=== PATIENT | female | born 1990 | race Caucasian/White ===

== ENCOUNTER 2025-05-03 07:54 | Inpatient (IN) ==
[2025-05-03] MEDS ORDERED: LIDOCAINE 1% LOCAL 20 ML VIAL INFIL PRN (08:10)
[2025-05-03] MEDS ORDERED: ACETAMINOPHEN 325 MG TAB PO PRN (08:10)
[2025-05-03 09:13] LABS: Hematocrit (blood only) 33.2 % (37.0-47.0); Hemoglobin 11.8 g/dl (12.0-16.0); Mean Corpuscular Hemoglobin 33.5 pg (25.0-34.0); Mean Corpuscular Volume 94.3 fL (80.0-100.0); Platelet Count 161 K/uL (130-400); RDW Standard Deviation 42.3 fL (36.4-46.3); Red Blood Count 3.52 M/uL (4.20-5.40); White Blood Count 7.11 K/ul (4.8-10.8)
[2025-05-03] MEDS: LACTATED RINGER'S 1,000 ML IV PRN (09:36)
[2025-05-03] MEDS: OXYTOCIN 30 UNITS/NSS 30 UNITS/500 ML BAG IV PRN (09:36)
--- NOTE | 2025-05-03 10:19 | History & Physical Report ---
Date of Service May 03, 2025 Assessment & Plan (1) Encounter for induction of labor: Plan Admit pt; iv, labs, add pitocin as needed; FHR category I Admission and Anticipated Discharge Date Admission Date: May 03, 2025 History of Present Illness Primary Care Provider: NO PCP Contractions: Negative Painful: Negative Leaky Fluid: Negative Movement: Present Pt is a 25 yo Female, , 41 wks 5 day, arrives to Labor & Delivery for induction of labor. Pt appears AOx3 and is accompanied by her to the unit Labs: Rhesus Positive, GBS Negative, Rubella Immune Hx of STDs: Negative Allergies Allergy/AdvReac Type Severity Reaction Status Date / Time amoxicillin Allergy Hives Verified 05/03/25 21:33 lactose Allergy Gastrointestinal Verified 05/03/25 08:17 Upset Penicillins Allergy Hives Verified 05/03/25 08:16 sesame oil Allergy Swelling Verified 05/03/25 08:17 of Lip/Tongue/Throat sesame seed Allergy Itching Verified 05/03/25 08:17 Home Medications Medication Instructions Recorded Confirmed Type aspirin 81 mg capsule 81 mg PO DAILY 02/16/25 05/03/25 History prenat.vits,vangie,cep-rvmd-pvsvj 1 tab PO DAILY 02/16/25 05/03/25 History famotidine [Pepcid] 1 tab PO DAILY 03/19/25 05/03/25 History Patient History Medical History (Updated 05/03/25 @ 21:07 by Taurus Calloway MD) Infertility, female IVF Family History (Updated 02/16/25 @ 14:35 by Gisele Mixon) Father Diabetes Grandmother (Maternal) Breast cancer Social History (Updated 05/03/25 @ 08:13 by Karin Infante RN) Smoking Status: Never smoker Do You Dip or Chew Tobacco: No; Hx Alcohol Use: No Hx Substance Use: No Preferred Language: Sami Communication Ability: Effective [employer] E Business Developer Required: No Beliefs That Will Affect Care: None marital status: marital status details: Ji [phone]) [phone] Current Living Situation: Spouse Current Living Situation Comment: lives with spouse, 2 dogs. current occupational status: unemployed current occupation: homemaker Other Information That Helps Us Care for You: No Feels Safe at Home: Yes Safety Concerns: Feels Safe At This Time Assistive Devices: None Review of Systems All systems reviewed & are unremarkable except as noted in HPI & below i. Denies fever, chills, sweats ii. Denies SOB, difficulty breathing, chest pain, palpitations, chest pressure iii. Denies breast pain. iv. Denies Dysuria v. Denies headache or changes in vision. Physical Exam Constitutional: WD/WN, vitals as above Eyes: PERRL, conjunctivae normal, anicteric sclerae Neck: trachea midline, no thyromegaly Cardiovascular: RRR, no murmur, no edema Gastrointestinal (Abdomen): normal bowel sounds, soft, nontender, no hepatosplenomegaly Musculoskeletal: no cyanosis or clubbing, extremities motor strength 5/5 Neurologic: patellar DTR's 2+ bilat, sensation intact Psychiatric: A+Ox3, euthymic affect Genitourinary: As Per Dr. Calloway's Attestation Results & Data Vital Signs (Past 12 Hours) Vital Signs Pulse BP 05/03/25 08:06 96 H 103/64 Supervising Physician Co-Signing Physician Notes Patient seen with resident and agree with the above findings plan. Cervix closed/long/high and posterior. We attempted to place cervical ripening Heaton this morning upon admission. This was not successful and was started on oxytocin per regular protocol. Heaton catheter was able to be placed at around 1 PM.
--- NOTE | 2025-05-03 20:45 | Labor Progress Brief Note ---
Date of Service May 03, 2025 Subjective Reason For Note: Routine Evaluation Assessment & Plan (1) Encounter for induction of labor: Plan: Presented for evaluation after Heaton catheter came out. Was found to be 1.5 cm dilated 80% effaced -2 station. AROM for clear. Category 1 tracing. Will continue to monitor Admission and Anticipated Discharge Date Admission Date: May 03, 2025 Physical Exam Genitourinary: Manual OB Exam: + cervical dilation (1.5), + cervical effacement 80%, + station -2 and + amniotic fluid (AROM) clear OB Exam Monitor Tracing: + external FHT monitor used, + external uterine monitor used, + category I and + normal FHT variability Results & Data Vital Signs (Past 12 Hours) Vital Signs Temp Pulse Resp BP 05/03/25 19:30 83 119/79 05/03/25 19:00 16 05/03/25 19:00 36.6 C 05/03/25 18:39 72 111/72 05/03/25 17:39 72 105/55 L 05/03/25 16:40 76 117/78 05/03/25 15:40 76 123/60 05/03/25 15:00 18 05/03/25 15:00 36.7 C 05/03/25 14:39 68 129/75 05/03/25 13:39 83 112/66 05/03/25 12:40 75 115/56 L 05/03/25 11:41 75 89/54 L 05/03/25 11:00 18 05/03/25 11:00 36.7 C 05/03/25 10:40 79 113/63 05/03/25 09:38 88 108/61 Coding Level of Care Code None Diagnoses Encounter for induction of labor Z34.90
[2025-05-03] MEDS: CALCIUM CARBONATE 500 MG CHEWABLE TAB PO PRN (21:31)
[2025-05-03] MEDS: FAMOTIDINE 20MG IV PUSH 20 MG/5 ML SYR IV SCH (22:00)
[2025-05-03] MEDS ORDERED: SODIUM CHLORIDE 0.9% PF INJ 10 ML VIAL EPI PRN (22:25)
[2025-05-03] MEDS ORDERED: NALOXONE HCL 1 MG in SODIUM CHLORIDE 0.9% 1,000 ML IV PRN (22:25)
[2025-05-03] MEDS ORDERED: NALOXONE HCL 0.4 MG/1 ML VIAL/CARP IV PRN (22:25)
[2025-05-03] MEDS ORDERED: NALBUPHINE HCL INJ 10 MG/ML AMP IV PRN (22:25)
[2025-05-03] MEDS ORDERED: ROPIVACAINE 0.5% PF 5 MG/ML 20 ML VIAL EPI PRN (22:25)
[2025-05-03] MEDS ORDERED: BUPIVACAINE 0.25% PF 30 ML VIAL EPI PRN (22:25)
[2025-05-03] MEDS ORDERED: LIDOCAINE 2% MPF LOCAL 5 ML VIAL EPI PRN (22:25)
[2025-05-03] MEDS ORDERED: diphenhydrAMINE 50 MG/ML VIAL IV PRN (22:25)
--- NOTE | 2025-05-03 22:28 | Anesthesiology Consultation ---
Date of Service May 03, 2025 Assessment & Plan Chart Review Chart Review: Patient NOT seen in Pre Admission Testing and Acceptable Risk for Labor Epidural Consults Requested none ASA ASA2 Proposed Anesthesia Anesthesia Type: Labor Epidural Risk / Benefits Reviewed With: PT / POA / Parent / Guardian, Accepts Plan and Informed Consent Obtained History Height/Weight Height: 5 ft 5 in Weight: 92.986 kg Allergies Allergy/AdvReac Type Severity Reaction Status Date / Time amoxicillin Allergy Hives Verified 05/03/25 21:33 lactose Allergy Gastrointestinal Verified 05/03/25 08:17 Upset Penicillins Allergy Hives Verified 05/03/25 08:16 sesame oil Allergy Swelling Verified 05/03/25 08:17 of Lip/Tongue/Throat sesame seed Allergy Itching Verified 05/03/25 08:17 Medications Home Medications Medication Instructions Recorded Confirmed Last Taken aspirin 81 mg capsule 81 mg PO DAILY 02/16/25 05/03/25 05/02/25 prenat.vits,vangie,mjs-jciy-gjopy 1 tab PO DAILY 02/16/25 05/03/25 05/02/25 famotidine [Pepcid] 1 tab PO DAILY 03/19/25 05/03/25 05/02/25 Active Medications Generic Name Dose Route Start Last Admin Trade Name Freq PRN Reason Stop Dose Admin Calcium Carbonate 500 mg 05/03/25 08:10 05/03/25 21:31 Calcium Carbonate 500 Mg Chewable Tab PO 06/02/25 08:09 500 mg Q6H PRN Administration Indigestion Lactated Ringer's 1,000 mls @ 125 mls/hr 05/03/25 08:10 05/03/25 17:29 Lr IV 05/05/25 08:09 125 mls/hr .Q8H PRN Administration L&D Protocol Protocol Oxytocin 30 units in 500 mls @ 24 mls/hr 05/03/25 08:38 05/03/25 21:32 Pitocin 30 Units/Nss IV 05/05/25 08:37 1.44 units/hr .[id number] PRN 24 mls/hr Labor Induction/Augmentation Titration Protocol 1.44 UNITS/HR Famotidine 20 mg in 5 mls @ 2.5 mls/min 05/03/25 21:30 05/03/25 22:00 Pepcid 20mg Iv Push IV 06/02/25 21:29 2.5 mls/min Q12H KHLOE Administration NPO Date Last Intake of Fluids: 05/03/25 Time Last Intake of Fluids: 22:00 Date Last Intake of Solids: 05/03/25 Time Last Intake of Solids: 07:00 Past Medical History Medical History Infertility, female IVF Exercise / Class Metabolic Activity 1 > 8 Run/Swim/Ski/Tennis Past Family History Family History Father Diabetes Grandmother (Maternal) Breast cancer Past Anesthesia History No Hx of Anesthesia Complications and No Family Hx of Anesthesia Complications History of PONV No Hx of PONV and No Hx of Motion Sickness Social History Smoking Status: Never smoker Do You Dip or Chew Tobacco: No Hx Alcohol Use: No Hx Substance Use: No substance use type: does not use Review of Systems ROS Unobtainable: All systems reviewed & are unremarkable except as noted in HPI & below Physical Exam Vital Signs Last Vital Signs Temp 36.6 C 05/03/25 22:05 Pulse 74 05/03/25 22:05 Resp 16 05/03/25 22:05 BP 113/75 05/03/25 22:05 ENMT Mouth: no TMJ abnormality Thyromental Distance: > or= 3.5 Finger Breadths Mallampati Class: II Neck normal visual inspection and trachea midline; neck extension not limited Respiratory normal respiratory effort Auscultation: lungs clear to auscultation bilaterally Cardiovascular Rate/Rhythm: regular rate and regular rhythm Heart Sounds: no murmur Musculoskeletal Spine: normal cervical ROM Extremities: full ROM of extremities Neurologic moves all extremities Psychiatric Orientation: alert and oriented x 3 Testing Laboratory Results 05/03/25 08:56
[2025-05-03] MEDS: fentANYL 2 MCG/ML BUPIVacaine 0.125%-NSS 100ML BAG EPI PRN (22:57)
[2025-05-03] MEDS: BUPIVACAINE 0.25% PF 30 ML VIAL EPI STA (22:58)
[2025-05-03] MEDS: LIDOCAINE 2%/EPINEPHRINE 1:200,000 20 ML PF ONE (22:59)
--- NOTE | 2025-05-03 23:41 | Labor Progress Brief Note ---
Date of Service May 03, 2025 Subjective Reason For Note: Routine Evaluation Assessment & Plan (1) Encounter for induction of labor: Plan: Minimal cervical change noted. IUPC placed for Pitocin titration. rupture membranes for clear. Category 1 tracing. Vitals within normal limits. Admission and Anticipated Discharge Date Admission Date: May 03, 2025 Physical Exam Genitourinary: Manual OB Exam: + cervical dilation (2), + cervical effacement 90%, + station -1 and + amniotic fluid clear OB Exam Monitor Tracing: + external FHT monitor used, + external uterine monitor used, + category I and + normal FHT variability Results & Data Vital Signs (Past 12 Hours) Vital Signs Temp Pulse Resp BP Pulse Ox 05/03/25 23:36 74 96 05/03/25 23:31 76 95 05/03/25 23:26 76 95 05/03/25 23:24 73 94/55 L 05/03/25 23:21 82 96 05/03/25 23:16 81 95 05/03/25 23:11 78 98 05/03/25 23:08 90 104/59 L 05/03/25 23:06 92 H 97 05/03/25 23:05 97 H 106/61 05/03/25 23:02 90 108/58 L 05/03/25 23:01 89 97 05/03/25 22:59 89 104/59 L 05/03/25 22:56 97 05/03/25 22:56 92 H 05/03/25 22:56 81 115/56 L 05/03/25 22:54 88 117/56 L 05/03/25 22:53 83 130/56 L 05/03/25 22:51 93 H 99 05/03/25 22:46 76 100 05/03/25 22:41 73 100 05/03/25 22:05 36.6 C 74 16 113/75 05/03/25 20:59 36.5 C 73 16 102/56 L 05/03/25 19:30 83 119/79 05/03/25 19:00 16 05/03/25 19:00 36.6 C 16 05/03/25 18:39 72 111/72 05/03/25 17:39 72 105/55 L 05/03/25 16:40 76 117/78 05/03/25 15:40 76 123/60 05/03/25 15:00 18 05/03/25 15:00 36.7 C 18 05/03/25 14:39 68 129/75 05/03/25 13:39 83 112/66 05/03/25 12:40 75 115/56 L 05/03/25 11:41 75 89/54 L Coding Level of Care Code None Diagnoses Encounter for induction of labor Z34.90
--- NOTE | 2025-05-04 07:10 | Labor Progress Brief Note ---
Date of Service May 04, 2025 Subjective Reason For Note: Routine Evaluation Assessment & Plan (1) Encounter for induction of labor: Plan: Slow progress noted. Will continue oxytocin per regular protocol. Vitals within normal limits. Admission and Anticipated Discharge Date Admission Date: May 03, 2025 Physical Exam Genitourinary: Manual OB Exam: + cervical dilation (3.5), + cervical effacement 90%, + station -2 and + amniotic fluid clear OB Exam Monitor Tracing: + external FHT monitor used, + external uterine monitor used, + category I and + normal FHT variability Cervical exam per nurse Results & Data Vital Signs (Past 12 Hours) Vital Signs Temp Pulse Resp BP Pulse Ox 05/04/25 04:36 76 98 05/04/25 04:31 81 98 05/04/25 04:26 77 97 05/04/25 04:25 72 113/76 05/04/25 04:21 74 99 05/04/25 04:16 93 H 99 05/04/25 04:11 70 97 05/04/25 04:10 37.5 C 67 16 98/56 L 05/04/25 04:06 71 98 05/04/25 04:01 65 98 05/04/25 03:56 70 99 05/04/25 03:54 71 98/51 L 05/04/25 03:51 70 97 05/04/25 03:46 69 97 05/04/25 03:41 69 97 05/04/25 03:38 70 94/51 L 05/04/25 03:36 69 96 05/04/25 03:31 77 95 05/04/25 03:26 69 96 05/04/25 03:25 67 92/50 L 05/04/25 03:21 68 96 05/04/25 03:16 63 97 05/04/25 03:11 76 98 05/04/25 03:10 67 97/53 L 05/04/25 03:06 84 95 05/04/25 03:01 83 94 05/04/25 02:56 81 95 05/04/25 02:53 82 115/55 L 05/04/25 02:51 79 95 05/04/25 02:46 83 95 05/04/25 02:41 91 H 95 05/04/25 02:40 16 05/04/25 02:40 37.1 C 16 05/04/25 02:39 86 112/53 L 05/04/25 02:36 87 94 05/04/25 02:31 82 94 05/04/25 02:26 84 94 05/04/25 02:23 90 105/52 L 05/04/25 02:21 81 94 05/04/25 02:16 81 94 05/04/25 02:11 85 94 05/04/25 02:08 86 98/55 L 05/04/25 02:06 83 93 05/04/25 02:01 83 93 05/04/25 01:56 81 94 05/04/25 01:54 81 102/58 L 05/04/25 01:51 82 95 05/04/25 01:46 77 95 05/04/25 01:41 86 96 05/04/25 01:38 82 98/53 L 05/04/25 01:36 85 96 05/04/25 01:31 82 95 05/04/25 01:26 79 95 05/04/25 01:23 71 104/58 L 05/04/25 01:21 80 95 05/04/25 01:16 78 95 05/04/25 01:11 69 96 05/04/25 01:09 67 103/56 L 05/04/25 01:06 84 97 05/04/25 01:01 77 94 05/04/25 00:56 70 95 05/04/25 00:53 86 110/58 L 05/04/25 00:51 72 95 05/04/25 00:46 72 95 05/04/25 00:41 74 95 05/04/25 00:38 81 108/57 L 05/04/25 00:36 83 96 05/04/25 00:31 85 96 05/04/25 00:30 75 105/58 L 05/04/25 00:26 96 05/04/25 00:26 80 05/04/25 00:26 90 89/55 L 05/04/25 00:24 81 85/48 L 05/04/25 00:21 76 94 05/04/25 00:16 80 94 05/04/25 00:11 76 95 05/04/25 00:09 71 92/53 L 05/04/25 00:06 76 95 05/04/25 00:02 76 94 05/04/25 00:01 76 95 05/03/25 23:56 73 96 05/03/25 23:54 72 99/55 L 05/03/25 23:51 73 95 05/03/25 23:46 78 95 05/03/25 23:42 69 91/55 L 05/03/25 23:41 74 91/45 L 96 05/03/25 23:36 74 96 05/03/25 23:31 76 95 05/03/25 23:26 76 95 05/03/25 23:24 73 94/55 L 05/03/25 23:21 82 96 05/03/25 23:16 81 95 05/03/25 23:12 36.7 C 05/03/25 23:11 78 98 05/03/25 23:08 90 104/59 L 05/03/25 23:06 92 H 97 05/03/25 23:05 97 H 106/61 05/03/25 23:02 90 108/58 L 05/03/25 23:01 89 97 05/03/25 23:00 18 05/03/25 23:00 18 05/03/25 22:59 89 104/59 L 05/03/25 22:56 97 05/03/25 22:56 92 H 05/03/25 22:56 81 115/56 L 05/03/25 22:54 88 117/56 L 05/03/25 22:53 83 130/56 L 05/03/25 22:51 93 H 99 05/03/25 22:46 76 100 05/03/25 22:41 73 100 05/03/25 22:05 36.6 C 74 16 113/75 05/03/25 20:59 36.5 C 73 16 102/56 L 05/03/25 19:30 83 119/79 05/03/25 19:00 16 05/03/25 19:00 36.6 C 16 05/03/25 18:39 72 111/72 05/03/25 17:39 72 105/55 L 05/03/25 16:40 76 117/78 Coding Level of Care Code None Diagnoses Encounter for induction of labor Z34.90
[2025-05-04] MEDS: BUPIVACAINE 0.25% PF 30 ML VIAL ONE (07:23)
--- NOTE | 2025-05-04 07:40 | Labor Progress Brief Note ---
Date of Service May 04, 2025 Subjective Reason For Note: Routine Evaluation Assessment & Plan (1) Encounter for induction of labor: Plan: Excellent progress noted. Continue oxytocin per regular protocol. Vitals within normal limits. Category 1 tracing (2) resulting from in vitro fertilization, antepartum: Admission and Anticipated Discharge Date Admission Date: May 03, 2025 Physical Exam Genitourinary: normal external appearance Manual OB Exam: + cervical dilation (8.5), + cervical effacement 90%, + station 0 and + 1 and + amniotic fluid clear OB Exam Monitor Tracing: + external FHT monitor used, + external uterine monitor used, + category I and + normal FHT variability Results & Data Vital Signs (Past 12 Hours) Vital Signs Temp Pulse Resp BP Pulse Ox 05/04/25 07:36 100 H 97 05/04/25 07:31 95 H 96 05/04/25 07:26 82 96 05/04/25 07:25 76 117/66 05/04/25 07:21 74 97 05/04/25 07:16 78 96 05/04/25 07:11 80 96 05/04/25 07:06 72 95 05/04/25 07:01 82 98 05/04/25 06:56 86 96 05/04/25 06:53 88 106/61 05/04/25 06:51 83 96 05/04/25 06:46 85 96 05/04/25 06:41 77 96 05/04/25 06:40 16 05/04/25 06:40 37.2 C 16 05/04/25 06:39 78 119/68 05/04/25 06:36 83 95 05/04/25 06:31 85 94 05/04/25 06:26 89 97 05/04/25 06:24 85 117/59 L 05/04/25 06:21 85 95 05/04/25 06:16 84 94 05/04/25 06:11 82 96 05/04/25 06:09 83 110/65 05/04/25 06:06 85 95 05/04/25 06:01 85 95 05/04/25 05:56 81 96 05/04/25 05:55 83 103/60 05/04/25 05:51 83 96 05/04/25 05:46 85 96 05/04/25 05:41 81 96 05/04/25 05:39 79 109/65 05/04/25 05:36 83 97 05/04/25 05:31 79 98 05/04/25 05:26 77 99 05/04/25 05:24 83 118/80 05/04/25 05:21 83 98 05/04/25 05:16 80 99 05/04/25 05:11 79 99 05/04/25 05:09 78 102/54 L 05/04/25 05:06 78 97 05/04/25 05:01 84 99 05/04/25 04:56 75 97 05/04/25 04:53 71 117/68 05/04/25 04:51 74 98 05/04/25 04:46 83 99 05/04/25 04:41 75 99 05/04/25 04:39 71 103/63 05/04/25 04:36 76 98 05/04/25 04:31 81 98 05/04/25 04:26 77 97 05/04/25 04:25 72 113/76 05/04/25 04:21 74 99 05/04/25 04:16 93 H 99 05/04/25 04:11 70 97 05/04/25 04:10 37.5 C 67 16 98/56 L 05/04/25 04:06 71 98 05/04/25 04:01 65 98 05/04/25 03:56 70 99 05/04/25 03:54 71 98/51 L 05/04/25 03:51 70 97 05/04/25 03:46 69 97 05/04/25 03:41 69 97 05/04/25 03:38 70 94/51 L 05/04/25 03:36 69 96 05/04/25 03:31 77 95 05/04/25 03:26 69 96 05/04/25 03:25 67 92/50 L 05/04/25 03:21 68 96 05/04/25 03:16 63 97 05/04/25 03:11 76 98 05/04/25 03:10 67 97/53 L 05/04/25 03:06 84 95 05/04/25 03:01 83 94 05/04/25 02:56 81 95 05/04/25 02:53 82 115/55 L 05/04/25 02:51 79 95 05/04/25 02:46 83 95 05/04/25 02:41 91 H 95 05/04/25 02:40 16 05/04/25 02:40 37.1 C 16 05/04/25 02:39 86 112/53 L 05/04/25 02:36 87 94 05/04/25 02:31 82 94 05/04/25 02:26 84 94 05/04/25 02:23 90 105/52 L 05/04/25 02:21 81 94 05/04/25 02:16 81 94 05/04/25 02:11 85 94 05/04/25 02:08 86 98/55 L 05/04/25 02:06 83 93 05/04/25 02:01 83 93 05/04/25 01:56 81 94 05/04/25 01:54 81 102/58 L 05/04/25 01:51 82 95 05/04/25 01:46 77 95 05/04/25 01:41 86 96 05/04/25 01:38 82 98/53 L 05/04/25 01:36 85 96 05/04/25 01:31 82 95 05/04/25 01:26 79 95 05/04/25 01:23 71 104/58 L 05/04/25 01:21 80 95 05/04/25 01:16 78 95 05/04/25 01:11 69 96 05/04/25 01:09 67 103/56 L 05/04/25 01:06 84 97 05/04/25 01:01 77 94 05/04/25 00:56 70 95 05/04/25 00:53 86 110/58 L 05/04/25 00:51 72 95 05/04/25 00:46 72 95 05/04/25 00:41 74 95 05/04/25 00:38 81 108/57 L 05/04/25 00:36 83 96 05/04/25 00:31 85 96 05/04/25 00:30 75 105/58 L 05/04/25 00:26 96 05/04/25 00:26 80 05/04/25 00:26 90 89/55 L 05/04/25 00:24 81 85/48 L 05/04/25 00:21 76 94 05/04/25 00:16 80 94 05/04/25 00:11 76 95 05/04/25 00:09 71 92/53 L 05/04/25 00:06 76 95 05/04/25 00:02 76 94 05/04/25 00:01 76 95 05/03/25 23:56 73 96 05/03/25 23:54 72 99/55 L 05/03/25 23:51 73 95 05/03/25 23:46 78 95 05/03/25 23:42 69 91/55 L 05/03/25 23:41 74 91/45 L 96 05/03/25 23:36 74 96 05/03/25 23:31 76 95 05/03/25 23:26 76 95 05/03/25 23:24 73 94/55 L 05/03/25 23:21 82 96 05/03/25 23:16 81 95 05/03/25 23:12 36.7 C 05/03/25 23:11 78 98 05/03/25 23:08 90 104/59 L 05/03/25 23:06 92 H 97 05/03/25 23:05 97 H 106/61 05/03/25 23:02 90 108/58 L 05/03/25 23:01 89 97 05/03/25 23:00 18 05/03/25 23:00 18 05/03/25 22:59 89 104/59 L 05/03/25 22:56 97 05/03/25 22:56 92 H 05/03/25 22:56 81 115/56 L 05/03/25 22:54 88 117/56 L 05/03/25 22:53 83 130/56 L 05/03/25 22:51 93 H 99 05/03/25 22:46 76 100 05/03/25 22:41 73 100 05/03/25 22:05 36.6 C 74 16 113/75 05/03/25 20:59 36.5 C 73 16 102/56 L Coding Level of Care Code None Diagnoses Encounter for induction of labor Z34.90 resulting from in vitro fertilization, antepartum O09.819
--- NOTE | 2025-05-04 08:11 | Anesthesia Procedure Note ---
Date of Service May 04, 2025 Anesthesia Epidural Re-Dose Vital Signs Temp Pulse Resp BP Pulse Ox 98.4 F 84 16 117/72 97 05/04/25 07:15 05/04/25 08:06 05/04/25 06:40 05/04/25 07:54 05/04/25 08:06 Notes Pain Intensity: 0 Dilatation (cm): 8.5 Effacement (%): 90 Called by nursing to evaluate epidural as the patient is having increased pain. The epidural was re-dosed with the following medications (all medications via epidural route) after negative aspiration of the epidural catheter for CSF/HEME. Bupivacaine 0.25% (6ml) with 100 mcg Fentanyl After Epidural Re-Dose Mental Status: alert / awake / arousable Pain: improving with treatment Airway Patency, RR, SpO2: stable & adequate BP & HR: stable & adequate
--- NOTE | 2025-05-04 09:35 | Labor Progress Brief Note ---
Date of Service May 04, 2025 Subjective mostly being bothered by back pain Assessment & Plan (1) Encounter for induction of labor: Plan continue current management. fetus category. Admission and Anticipated Discharge Date Admission Date: May 03, 2025 Physical Exam Physical Exam: cx--ant lip/-1 toco--q3-4, pit at 30 efm--130s with mod variability, accels to 170s, no decels Results & Data Vital Signs (Past 12 Hours) Vital Signs Temp Pulse Resp BP Pulse Ox 05/04/25 09:31 72 100 05/04/25 09:26 81 99 05/04/25 09:23 73 116/60 05/04/25 09:21 77 99 05/04/25 09:16 71 100 05/04/25 09:11 77 99 05/04/25 09:06 79 98 05/04/25 09:01 75 97 05/04/25 08:56 88 100 05/04/25 08:52 75 123/69 05/04/25 08:51 80 97 05/04/25 08:46 78 96 05/04/25 08:41 81 96 05/04/25 08:36 76 95 05/04/25 08:31 77 95 05/04/25 08:26 76 97 05/04/25 08:23 77 106/57 L 05/04/25 08:21 76 98 05/04/25 08:16 79 99 05/04/25 08:11 89 97 05/04/25 08:10 83 181/63 H 05/04/25 08:06 84 97 05/04/25 08:01 88 97 05/04/25 07:56 88 96 05/04/25 07:54 114 H 117/72 05/04/25 07:51 113 H 99 05/04/25 07:46 91 H 99 05/04/25 07:41 86 97 05/04/25 07:40 90 108/67 05/04/25 07:36 100 H 97 05/04/25 07:31 95 H 96 05/04/25 07:26 82 96 05/04/25 07:25 76 117/66 05/04/25 07:21 74 97 05/04/25 07:16 78 96 05/04/25 07:15 36.9 C 05/04/25 07:15 36.9 C 05/04/25 07:11 80 96 05/04/25 07:06 72 95 05/04/25 07:01 82 98 05 06:56 86 96 05/04/25 06:53 88 106/61 05/04/25 06:51 83 96 05/04/25 06:46 85 96 05/04/25 06:41 77 96 05/04/25 06:40 16 05/04/25 06:40 37.2 C 16 05/04/25 06:39 78 119/68 05/04/25 06:36 83 95 05/04/25 06:31 85 94 05/04/25 06:26 89 97 05/04/25 06:24 85 117/59 L 05/04/25 06:21 85 95 05/04/25 06:16 84 94 05/04/25 06:11 82 96 05/04/25 06:09 83 110/65 05/04/25 06:06 85 95 05/04/25 06:01 85 95 05/04/25 05:56 81 96 05/04/25 05:55 83 103/60 05/04/25 05:51 83 96 05/04/25 05:46 85 96 05/04/25 05:41 81 96 05/04/25 05:39 79 109/65 05/04/25 05:36 83 97 05/04/25 05:31 79 98 05/04/25 05:26 77 99 05/04/25 05:24 83 118/80 05/04/25 05:21 83 98 05/04/25 05:16 80 99 05/04/25 05:11 79 99 05 05:09 78 102/54 L 05/04/25 05:06 78 97 05 05:01 84 99 05 04:56 75 97 05 04:53 71 117/68 05 04:51 74 98 05 04:46 83 99 05 04:41 75 99 05/04/25 04:39 71 103/63 05 04:36 76 98 05 04:31 81 98 05 04:26 77 97 05 04:25 72 113/76 05/04/25 04:21 74 99 05/04/25 04:16 93 H 99 05/04/25 04:11 70 97 05/04/25 04:10 37.5 C 67 16 98/56 L 05/04/25 04:06 71 98 05/04/25 04:01 65 98 05/04/25 03:56 70 99 05/04/25 03:54 71 98/51 L 05/04/25 03:51 70 97 05/04/25 03:46 69 97 05/04/25 03:41 69 97 05/04/25 03:38 70 94/51 L 05/04/25 03:36 69 96 05/04/25 03:31 77 95 05/04/25 03:26 69 96 05/04/25 03:25 67 92/50 L 05/04/25 03:21 68 96 05/04/25 03:16 63 97 05/04/25 03:11 76 98 05/04/25 03:10 67 97/53 L 05/04/25 03:06 84 95 05/04/25 03:01 83 94 05/04/25 02:56 81 95 05/04/25 02:53 82 115/55 L 05/04/25 02:51 79 95 05/04/25 02:46 83 95 05/04/25 02:41 91 H 95 05/04/25 02:40 16 05/04/25 02:40 37.1 C 16 05/04/25 02:39 86 112/53 L 05/04/25 02:36 87 94 05/04/25 02:31 82 94 05/04/25 02:26 84 94 05/04/25 02:23 90 105/52 L 05/04/25 02:21 81 94 05/04/25 02:16 81 94 05/04/25 02:11 85 94 05/04/25 02:08 86 98/55 L 05/04/25 02:06 83 93 05/04/25 02:01 83 93 05/04/25 01:56 81 94 05/04/25 01:54 81 102/58 L 05/04/25 01:51 82 95 05/04/25 01:46 77 95 05/04/25 01:41 86 96 05/04/25 01:38 82 98/53 L 05/04/25 01:36 85 96 05/04/25 01:31 82 95 05/04/25 01:26 79 95 05/04/25 01:23 71 104/58 L 05/04/25 01:21 80 95 05/04/25 01:16 78 95 05/04/25 01:11 69 96 05/04/25 01:09 67 103/56 L 05/04/25 01:06 84 97 05/04/25 01:01 77 94 05/04/25 00:56 70 95 05/04/25 00:53 86 110/58 L 05/04/25 00:51 72 95 05/04/25 00:46 72 95 05/04/25 00:41 74 95 05/04/25 00:38 81 108/57 L 05/04/25 00:36 83 96 05/04/25 00:31 85 96 05/04/25 00:30 75 105/58 L 05/04/25 00:26 96 05/04/25 00:26 80 05/04/25 00:26 90 89/55 L 05/04/25 00:24 81 85/48 L 05/04/25 00:21 76 94 05/04/25 00:16 80 94 05/04/25 00:11 76 95 05/04/25 00:09 71 92/53 L 05/04/25 00:06 76 95 05/04/25 00:02 76 94 05/04/25 00:01 76 95 05/03/25 23:56 73 96 05/03/25 23:54 72 99/55 L 05/03/25 23:51 73 95 05/03/25 23:46 78 95 05/03/25 23:42 69 91/55 L 05/03/25 23:41 74 91/45 L 96 05/03/25 23:36 74 96 05/03/25 23:31 76 95 05/03/25 23:26 76 95 05/03/25 23:24 73 94/55 L 05/03/25 23:21 82 96 05/03/25 23:16 81 95 05/03/25 23:12 36.7 C 05/03/25 23:11 78 98 05/03/25 23:08 90 104/59 L 05/03/25 23:06 92 H 97 05/03/25 23:05 97 H 106/61 05/03/25 23:02 90 108/58 L 05/03/25 23:01 89 97 05/03/25 23:00 18 05/03/25 23:00 18 05/03/25 22:59 89 104/59 L 05/03/25 22:56 97 05/03/25 22:56 92 H 05/03/25 22:56 81 115/56 L 05/03/25 22:54 88 117/56 L 05/03/25 22:53 83 130/56 L 05/03/25 22:51 93 H 99 05/03/25 22:46 76 100 05/03/25 22:41 73 100 05/03/25 22:05 36.6 C 74 16 113/75 Coding Level of Care Code None Diagnoses Encounter for induction of labor Z34.90
[2025-05-04] MEDS: fentANYL 2 MCG/ML BUPIVacaine 0.125%-NSS 100ML BAG ONE (09:55)
[2025-05-04] MEDS: LIDOCAINE 2%/EPINEPHRINE 1:200,000 20 ML PF EPI STA (09:55)
[2025-05-04] MEDS: SODIUM CHLORIDE 0.9% PF INJ 10 ML VIAL ONE (09:55)
[2025-05-04] MEDS: SODIUM CHLORIDE 0.9% PF INJ 10 ML VIAL EPI STA (09:55)
[2025-05-04] MEDS: ONDANSETRON INJ 2 MG/ML 2 ML VIAL IV PRN (10:23)
--- NOTE | 2025-05-04 11:31 | Labor Progress Brief Note ---
Date of Service May 04, 2025 Subjective comfortable Assessment & Plan (1) Encounter for induction of labor: Plan fetus category one. start pushing. Admission and Anticipated Discharge Date Admission Date: May 03, 2025 Physical Exam Physical Exam: cx--c/c/+1-+2 toco--q3-4min, pit at 30 efm--145 with mod variability, accels to 170s, no decels Results & Data Vital Signs (Past 12 Hours) Vital Signs Temp Pulse Resp BP Pulse Ox 05/04/25 11:26 92 H 97 05/04/25 11:22 82 106/61 05/04/25 11:21 80 94 05/04/25 11:16 81 95 05/04/25 11:11 74 95 05/04/25 11:06 72 96 05/04/25 11:01 78 98 05/04/25 10:56 78 98 05/04/25 10:52 76 109/67 05/04/25 10:51 74 98 05/04/25 10:46 74 98 05/04/25 10:41 79 99 05/04/25 10:36 70 98 05/04/25 10:31 71 100 05/04/25 10:26 70 100 05/04/25 10:22 77 111/58 L 05/04/25 10:21 81 100 05/04/25 10:16 64 100 05/04/25 10:11 82 99 05/04/25 10:06 77 99 05/04/25 10:01 81 100 05/04/25 09:56 83 99 05/04/25 09:52 77 110/59 L 05/04/25 09:51 73 100 05/04/25 09:46 78 100 05/04/25 09:41 82 99 05/04/25 09:36 81 100 05/04/25 09:31 72 100 05/04/25 09:26 81 99 05/04/25 09:23 73 116/60 05/04/25 09:21 77 99 05/04/25 09:16 71 100 05/04/25 09:11 77 99 05/04/25 09:06 79 98 05/04/25 09:01 37.0 C 75 97 05/04/25 08:56 88 100 05/04/25 08:52 75 123/69 05/04/25 08:51 80 97 09/05/25 08:46 78 96 05/04/25 08:41 81 96 05/04/25 08:36 76 95 05/04/25 08:31 77 95 05/04/25 08:26 76 97 05/04/25 08:23 77 106/57 L 05/04/25 08:21 76 98 05/04/25 08:16 79 99 05/04/25 08:11 89 97 05/04/25 08:10 83 181/63 H 05/04/25 08:06 84 97 05/04/25 08:01 88 97 05/04/25 07:56 88 96 05/04/25 07:54 114 H 117/72 05/04/25 07:51 113 H 99 05/04/25 07:46 91 H 99 05/04/25 07:41 86 97 05/04/25 07:40 90 108/67 05/04/25 07:36 100 H 97 05/04/25 07:31 95 H 96 05/04/25 07:26 82 96 05/04/25 07:25 76 117/66 05/04/25 07:21 74 97 05/04/25 07:16 78 96 05/04/25 07:15 36.9 C 05/04/25 07:15 36.9 C 05/04/25 07:11 80 96 05/04/25 07:06 72 95 05/04/25 07:01 82 98 05/04/25 06:56 86 96 05/04/25 06:53 88 106/61 05/04/25 06:51 83 96 05/04/25 06:46 85 96 05/04/25 06:41 77 96 05/04/25 06:40 16 05/04/25 06:40 37.2 C 16 05/04/25 06:39 78 119/68 05/04/25 06:36 83 95 05/04/25 06:31 85 94 05/04/25 06:26 89 97 05/04/25 06:24 85 117/59 L 05/04/25 06:21 85 95 05/04/25 06:16 84 94 05/04/25 06:11 82 96 05/04/25 06:09 83 110/65 05/04/25 06:06 85 95 05/04/25 06:01 85 95 05/04/25 05:56 81 96 05/04/25 05:55 83 103/60 05/04/25 05:51 83 96 05/04/25 05:46 85 96 05/04/25 05:41 81 96 05/04/25 05:39 79 109/65 05/04/25 05:36 83 97 05/04/25 05:31 79 98 05/04/25 05:26 77 99 05/04/25 05:24 83 118/80 05/04/25 05:21 83 98 05/04/25 05:16 80 99 05/04/25 05:11 79 99 05/04/25 05:09 78 102/54 L 05/04/25 05:06 78 97 05/04/25 05:01 84 99 05/04/25 04:56 75 97 05/04/25 04:53 71 117/68 05/04/25 04:51 74 98 05/04/25 04:46 83 99 05/04/25 04:41 75 99 05/04/25 04:39 71 103/63 05/04/25 04:36 76 98 05/04/25 04:31 81 98 05/04/25 04:26 77 97 05/04/25 04:25 72 113/76 05/04/25 04:21 74 99 05/04/25 04:16 93 H 99 05/04/25 04:11 70 97 05/04/25 04:10 37.5 C 67 16 98/56 L 05/04/25 04:06 71 98 05/04/25 04:01 65 98 05/04/25 03:56 70 99 05/04/25 03:54 71 98/51 L 05/04/25 03:51 70 97 05/04/25 03:46 69 97 05/04/25 03:41 69 97 05/04/25 03:38 70 94/51 L 05/04/25 03:36 69 96 05/04/25 03:31 77 95 05/04/25 03:26 69 96 05/04/25 03:25 67 92/50 L 05 03:21 68 96 05/04/25 03:16 63 97 05/04/25 03:11 76 98 05/04/25 03:10 67 97/53 L 05/04/25 03:06 84 95 05/04/25 03:01 83 94 05/04/25 02:56 81 95 05/04/25 02:53 82 115/55 L 05/04/25 02:51 79 95 05/04/25 02:46 83 95 05/04/25 02:41 91 H 95 05/04/25 02:40 16 05/04/25 02:40 37.1 C 16 05/04/25 02:39 86 112/53 L 05/04/25 02:36 87 94 05/04/25 02:31 82 94 05/04/25 02:26 84 94 05/04/25 02:23 90 105/52 L 05/04/25 02:21 81 94 05/04/25 02:16 81 94 05/04/25 02:11 85 94 05/04/25 02:08 86 98/55 L 05/04/25 02:06 83 93 05/04/25 02:01 83 93 05/04/25 01:56 81 94 05/04/25 01:54 81 102/58 L 05/04/25 01:51 82 95 05/04/25 01:46 77 95 05/04/25 01:41 86 96 05/04/25 01:38 82 98/53 L 05/04/25 01:36 85 96 05/04/25 01:31 82 95 05/04/25 01:26 79 95 05/04/25 01:23 71 104/58 L 05/04/25 01:21 80 95 05/04/25 01:16 78 95 05/04/25 01:11 69 96 05/04/25 01:09 67 103/56 L 05/04/25 01:06 84 97 05/04/25 01:01 77 94 05/04/25 00:56 70 95 05/04/25 00:53 86 110/58 L 05/04/25 00:51 72 95 05/04/25 00:46 72 95 05/04/25 00:41 74 95 05/04/25 00:38 81 108/57 L 05/04/25 00:36 83 96 05/04/25 00:31 85 96 05/04/25 00:30 75 105/58 L 05/04/25 00:26 96 05/04/25 00:26 80 05/04/25 00:26 90 89/55 L 05/04/25 00:24 81 85/48 L 05/04/25 00:21 76 94 05/04/25 00:16 80 94 05/04/25 00:11 76 95 05/04/25 00:09 71 92/53 L 05/04/25 00:06 76 95 05/04/25 00:02 76 94 05/04/25 00:01 76 95 05/03/25 23:56 73 96 05/03/25 23:54 72 99/55 L 05/03/25 23:51 73 95 05/03/25 23:46 78 95 05/03/25 23:42 69 91/55 L 05/03/25 23:41 74 91/45 L 96 05/03/25 23:36 74 96 05/03/25 23:31 76 95 Coding Level of Care Code None Diagnoses Encounter for induction of labor Z34.90
[2025-05-04] MEDS: METHYLERGONOVINE MALEATE 0.2 MG/ML AMP ONE (13:14)
[2025-05-04] MEDS: CARBOPROST TROMETHAMINE 250 MCG/ML AMPUL ONE (13:23)
--- NOTE | 2025-05-04 13:34 | Delivery Summary ---
Vaginal Delivery Summary Date of Service May 04, 2025 Vaginal Delivery Summary and 1st Degree LAC (bilateral labial) Pre-operative Diagnosis: at 41 0/7 Post-operative Diagnosis: same pph Procedure: [ valverde bulb pitocin arom iupc first degree and bilateral labial lacerations repair jennifer QBL: 1110cc Anesthesia: epidural Procedure: The patient presented to labor and delivery for postdates induction with a very unfavorable cervix. Pitocin started and was eventually able to place valverde bulb. Bulb fell out, got epidural. ARom done. The patient progressed slowly and required IUPC. She eventually got to c/c/+1. She pushed with good effort. The patient pushed for about one hour to deliver a viable female in angle position. The nose and mouth were bulb suctioned on the perineum and the rest of the infant was then delivered without difficulty after a loose nuchal cord was reduced. The baby was vigorous. The nose and mouth were again bulb suctioned and the was placed in the maternal abdomen for drying and attention. Cord was clamped and cut at 30 secs of life. Cord blood obtained. A first degree and bilateral labial lacerations were repaired. Placenta delivered by manual extraction as there was bleeding, intact with a three vessel cord. Cervix/sulci/rectum were intact. A PPH was encountered that was attended to with massage, dilute pitocin, im methergine, im hemobate, rectal cytotec and then ultimately a Jennifer was placed after clearing the sunday of clots. Apgars were 8/9. Mother and baby doing well at the end of the delivery. After placement of the Jennifer, the uterus got firm. Blood filled the tubing but did not go into the suction canister. The patient's vitals remained stable throughout. Will monitor closely. [facility] Vaginal Delivery Charge Delivery Type Details: and 1st Degree LAC (bilateral labial)
[2025-05-04] MEDS: OXYTOCIN 30 UNITS/NSS 30 UNITS/500 ML BAG IV PRN ×2 (13:36→14:43)
[2025-05-04] MEDS ORDERED: DIPHTHER/TETAN/PERTUS Vaccine (Tdap, Adol/Adult) 0.5mL IM ONE (13:56)
[2025-05-04] MEDS ORDERED: BENZOCAINE 20% SPRY 85 APPLN/85 GM CAN EXT PRN (13:56)
[2025-05-04] MEDS ORDERED: HYDROCORTISONE ACETATE 25 MG SUPP PR PRN (13:56)
[2025-05-04 14:46] LABS: Hematocrit (blood only) 33.5 % (37.0-47.0); Hemoglobin 11.6 g/dl (12.0-16.0); Mean Corpuscular Hemoglobin 33.0 pg (25.0-34.0); Mean Corpuscular Volume 95.4 fL (80.0-100.0); Platelet Count 181 K/uL (130-400); RDW Standard Deviation 42.9 fL (36.4-46.3); Red Blood Count 3.51 M/uL (4.20-5.40); White Blood Count 21.35 K/ul (4.8-10.8)
[2025-05-04] MEDS: CARBOPROST TROMETHAMINE 250 MCG/ML AMPUL IM ONE (18:00)
[2025-05-04] MEDS: METHYLERGONOVINE MALEATE 0.2 MG/ML AMP IM ONE (18:01)
--- NOTE | 2025-05-04 18:19 | Communication Note ---
Date of Service: May 04, 2025 Over the past two hours, the patient has had about 90cc of continued blood loss. the blood has not gone into the canister. The suction was d/c, the balloon was deflated and the Edwina was removed. Her bladder was drained for 850cc of urine. Her uterus is firm at u. There was not clot released after removal of the Edwina and with fundal massage. If all looks well, will transfer to the floor. It was discovered after the suction d/c that the wall suction was not connected to the correct part of the canister nor was the Edwina tubing. the Edwina tubing was actually connected to where the wall suction was supposed to be connected and that is closed to the canister. So, the blood would have never been able to actually enter the canister from the tubing as there was no opening for it. Neverthe less, her bleeding has been scant and her uterus is firm.
--- NOTE | 2025-05-04 18:29 | Anesthesia Procedure Note ---
Date of Service May 04, 2025 Anesthesia Post Epidural Note Vital Signs Vital Signs: Temp Pulse Resp BP Pulse Ox O2 Del Method 98.4 F 74 16 118/68 99 Room Air 05/04/25 15:30 05/04/25 18:14 05/04/25 15:30 05/04/25 18:14 05/04/25 12:56 05/04/25 13:45 Pain Intensity Right Abdomen: Pain Intensity: 0 Notes Mental Status: alert / awake / arousable and participated in evaluation Nausea / Vomiting: adequately controlled Pain: adequately controlled Airway Patency, RR, SpO2: stable & adequate BP & HR: stable & adequate Hydration State: stable & adequate Neuraxial Anesthesia: was administered and sensory block is resolving Anesthetic Complications: no major complications apparent and Pt Satisfied with anesthetic care Epidural: Removed without complications and With tip intact
[2025-05-04] MEDS: ACETAMINOPHEN 325 MG TAB PO PRN (18:33)
[2025-05-04] MEDS: IBUPROFEN 600 MG TAB PO PRN (20:57)
[2025-05-04] MEDS: DOCUSATE SODIUM 100 MG CAP PO SCH (22:03)
[2025-05-05 07:31] LABS: Hematocrit (blood only) 24.3 % (37.0-47.0); Hemoglobin 8.6 g/dl (12.0-16.0); Mean Corpuscular Hemoglobin 33.3 pg (25.0-34.0); Mean Corpuscular Volume 94.2 fL (80.0-100.0); Platelet Count 148 K/uL (130-400); RDW Standard Deviation 43.0 fL (36.4-46.3); Red Blood Count 2.58 M/uL (4.20-5.40); White Blood Count 12.79 K/ul (4.8-10.8)
[2025-05-05] MEDS: FERROUS SULFATE 325 MG TAB PO SCH (07:38)
[2025-05-05] MEDS: PRENATAL VITAMIN 1 TAB PO SCH (07:38)
--- NOTE | 2025-05-05 07:54 | Obstetrical Progress Note ---
Date of Service <Rohini Dickson MD - Last Filed: 05/05/25 07:55> May 05, 2025 Assessment & Plan <Rhoini Dickson MD - Last Filed: 05/05/25 07:55> (1) care following vaginal delivery: Plan -Stable routine care. Breast feeding. Rhesus Positive. Rubella Immune. Continue to monitor. <Nelida Woods MD, FACOG - Last Filed: 05/05/25 07:59> (1) care following vaginal delivery: Subjective <Rohini Dickson MD - Last Filed: 05/05/25 07:55> Ambulation: ambulating normally Voiding: no voiding problems Passing Gas:: Yes Diet Tolerance:: regular diet Lochia:: Small Feeding Type:: breast feeding Current Pain Level(1-10): 0 PPD1 Review of Systems All systems reviewed & are unremarkable except as noted in HPI & below i. Denies fever, chills, sweats ii. Denies SOB, difficulty breathing, chest pain, palpitations, chest pressure iii. Denies breast pain. iv. Denies Dysuria v. Denies headache or changes in vision. Physical Exam <Rohini Dickson MD - Last Filed: 05/05/25 07:55> Constitutional WD/WN, vitals as above Respiratory normal respiratory effort, lungs clear to auscultation Cardiovascular RRR, no murmur, no edema Gastrointestinal (Abdomen) normal bowel sounds, soft, nontender, no hepatosplenomegaly Skin no rashes, warm and dry Genitourinary On palpation of abdomen, uterus is firm and has begun involution, at approximately 1cm/day Results & Data <Rohini Dickson MD - Last Filed: 05/05/25 07:55> Vital Signs (Past 12 Hours) Vital Signs Temp Pulse Resp BP Pulse Ox O2 Del Method 05/05/25 03:20 36.7 C 79 16 94/58 L 95 Room Air 05/04/25 23:10 36.7 C 76 16 96/59 L 97 Room Air 05/04/25 20:00 36.8 C 74 16 103/64 98 Room Air Supervising Physician <Nelida Woods MD, FACOG - Last Filed: 05/05/25 07:59> Co-Signing Physician Notes Resident Physician Supervision Note: I interviewed and examined the patient. Discussed with Dr. Dickson and agree with findings and plan as documented in the note. Any exceptions or clarifications are listed here: Doing well. Tolerating h/h ok. Routine care, desires to stay. Documented By: Nelida Woods MD, FACOG Resident Activity Tracking <Rohini Dickson MD - Last Filed: 05/05/25 07:55> Resident Involvement: Resident Care Provided Care Provided: OB Delivery
[2025-05-06 07:04] LABS: Hematocrit (blood only) 27.2 % (37.0-47.0); Hemoglobin 9.3 g/dl (12.0-16.0)
[2025-05-06 07:40] VITALS: BP 117/74; PULSE 74; RESP 16; TEMP 97.7; O2SAT 97
--- NOTE | 2025-05-06 08:31 | Obstetrical Progress Note ---
Date of Service May 06, 2025 Assessment & Plan (1) care following vaginal delivery: 34 yo PP2 from c/b PPH, doing well -Meeting all pp milestones -Rh+/rubella immune/ -f/u 6 weeks for appt, dc home Subjective Ambulation: ambulating normally Voiding: no voiding problems Passing Gas:: Yes Diet Tolerance:: regular diet Lochia:: Small Feeding Type:: breast feeding Pain well managed with medication Review of Systems Denies fevers, chills, n/v, MELCHOR, CP, SOB Physical Exam Constitutional WD/WN, vitals as above no acute distress Respiratory normal respiratory effort, lungs clear to auscultation Cardiovascular RRR, no murmur, no edema Gastrointestinal (Abdomen) Percussion/Palpation: abdomen soft; abdomen nontender fundus firm at umbilicus and NT Musculoskeletal BLE symmetric, nonerythematous, nontender Results & Data Vital Signs (Past 12 Hours) Vital Signs Temp Pulse Resp BP Pulse Ox O2 Del Method 05/06/25 07:35 97.7 F 74 16 117/74 97 Room Air 05/05/25 23:07 97.9 F 66 18 107/65 98 Room Air
== END 2025-05-06 11:29 | disposition home or self-care (01) | DRG 768 ==
LOC: 4S1 07:54 → 4E2 05-04 19:51